=== PATIENT | male | born 1965 | race Caucasian/White ===

== ENCOUNTER → 2019-06-23 11:07 | Outpatient (CLI) | payer OTHER, SELFPAY ==
[2019-06-23 11:44] LABS: Add Manual Diff / Slide Review NO; Basophils Absolute Auto 100 /uL (0-100); Basophils Percent Auto 0.7 % (0-2); Eosinophils Absolute Auto 200 /uL (0-450); Eosinophils Percent Auto 2.7 % (2-4); Hematocrit 44.8 % (41-53); Hemoglobin 15.4 g/dL (13.5-17.5); Lymphocytes Absolute Auto 1300 /uL (1100-4500); Lymphocytes Percent Auto 14.3 % (25-40); Mean Corpuscular HGB Conc 34.4 % (30-36); Mean Corpuscular Hemoglobin 29.9 PG (26-34); Mean Corpuscular Volume 86.9 fL (80-100); Monocytes Absolute Auto 1000 /uL (0-900); Monocytes Percent Auto 11.6 % (3-14); Neutrophils Absolute Auto 6300 /uL (1500-7000); Neutrophils Percent Auto 70.7 % (50-75); Platelet Count 155 X10^3/uL (150-400); Red Blood Cell Count 5.15 X10^6/uL (4.5-5.9); Red Cell Distribution Width 13.3 % (11.6-14.8); White Blood Cell Count 8.9 X10^3/uL (4.5-11.0)
[2019-06-23 12:09] LABS: Erythrocyte Sedimentation Rate 4 MM/HR (0-15)
[2019-06-23 12:18] LABS: Uric Acid 5.9 mg/dL (3.5-8.5)
== END ==
PROVIDERS: Visit Provider Physician Assistant
DX: M10.9 Gout, unspecified (principal); M25.569 Pain in unspecified knee
CPT/HCPCS: 36415; 84550; 85025; 85651

== ENCOUNTER → 2021-03-04 12:50 | Outpatient (CLI) | payer OTHER, SELFPAY ==
--- NOTE | 2021-03-04 12:52 | DI.RAD.S_ITS ---
PROCEDURE: XR WRIST LT MIN 3V INDICATIONS: fall, L wrist injury TECHNIQUE: 4 views of the wrist were acquired. COMPARISON: None. FINDINGS: Bones: No fractures or dislocations. No suspicious bony lesions. Scaphoid view: No trauma found. Soft tissues: No suspicious soft tissue calcifications. IMPRESSION: Source of pain after trauma is not found. No fracture or traumatic subluxation is seen. Dictated by: Brayan Ochoa M.D. on 03/04/2021 at 13:10 Approved by: Brayan Ochoa M.D. on 03/04/2021 at 13:11
== END ==
PROVIDERS: PCP Physician Assistant Medical; Referring Provider Physician Assistant; Visit Provider Physician Assistant
DX: M25.532 Pain in left wrist (principal)
CPT/HCPCS: 73110

== ENCOUNTER 2023-01-07 09:26 | Emergency (ER) | payer OTHER, SELFPAY ==
[2023-01-07] VITALS (9 sets, daily range): BP systolic 118–175; BP diastolic 76–97; PULSE 68–79; RESP 13–22; TEMP 36.6; O2SAT 95–99; BMI 30.4
--- NOTE | 2023-01-07 09:31 | DI.RAD.S_ITS ---
PROCEDURE: XR CHEST 1V INDICATIONS: chest pain TECHNIQUE: One view of the chest was acquired. COMPARISON: None. FINDINGS: Surgical changes and devices: None. Lungs and pleura: Left basilar atelectasis. Lungs are clear. No pleural effusions or pneumothorax. Mediastinum: Mediastinal contours appear normal. Heart size is normal. Bones and chest wall: No suspicious bony lesions. Overlying soft tissues appear unremarkable. IMPRESSION: No acute cardiopulmonary abnormality. Dictated by: Ke Benson M.D. on 01/07/2023 at 10:04 Approved by: Ke Benson M.D. on 01/07/2023 at 10:04
--- NOTE | 2023-01-07 09:38 | ED_ITS ---
HPI - General Adult General Chief complaint: Chest Pain Stated complaint: chest pains and abd pain Time Seen by Provider: 01/07/23 09:29 Source: patient Mode of arrival: Ambulatory Limitations: no limitations History of Present Illness HPI narrative: Patient is a 57-year-old male. Does have a history of reflux disease. Is on omeprazole that he takes every day. On Sunday he started to have epigastric abdominal pain and also left arm pain. No shortness of breath. Went to an outside walk-in clinic. Had an EKG performed. Was told that it was unremarkable. Was discharged home. Followed up with the walk-in clinic at this hospital today for continued symptoms. He states it the left arm pain has resolved but he is still having the epigastric abdominal pain. He states it has been consistent since its onset on Sunday. He was sent to the emergency department for further evaluation. Related Data Home Medications Medication Instructions Recorded Confirmed omeprazole magnesium 20 mg 20 mg PO DAILY 11/02/21 01/07/23 tablet,delayed release (Prilosec OTC) aspirin 81 mg tablet 81 mg PO DAILY 01/07/23 01/07/23 Previous Rx's Medication Instructions Recorded sucralfate 100 mg/mL oral 10 ml PO QACHS #414 mL 01/07/23 suspension (Carafate) Allergies Allergy/AdvReac Type Severity Reaction Status Date / Time No Known Drug Allergies Allergy Verified 01/07/23 09:36 Review of Systems Review of Systems ROS Unobtainable: All systems reviewed & are unremarkable except as noted in HPI and below Patient History Medical History Gastroesophageal reflux disease Social History Smoking Status: Never smoker Smoking Status: Never smoker Exam Initial Vital Signs Initial Vital Signs: Vital Signs Temperature 97.8 F 01/07/23 09:30 Pulse Rate 78 01/07/23 09:30 Respiratory Rate 18 01/07/23 09:30 Blood Pressure 175/97 H 01/07/23 09:30 Pulse Oximetry 99 01/07/23 09:30 Oxygen Delivery Method Room Air 01/07/23 09:30 Const General: cooperative and comfortable HENMT Head: normocephalic Resp Effort & Inspection: normal respiratory effort Auscultation: clear to auscultation bilaterally Cardio Rate: regular rate Rhythm: regular rhythm GI Inspection: normal to inspection Palpation: soft, No firm, No guarding and tender (Epigastric pain) Skin General: no rashes or lesions noted Neuro General: patient alert, patient awake, patient oriented x3 and moves all e xtremities Extrem General: normal to inspection and capillary refill normal Scores HEART Score Heart Score history: Slightly Suspicious Heart Score EKG: Normal Heart Score Age: 45-64 years old Heart Score risk factors: No known risk factors Heart Score troponin: < or = to normal limit Heart Score Total: 1 Course Orders Ordered: ED Orders 01/07/23 09:30 Complete Blood Count AUTO DIFF Stat Comprehensive Metabolic Panel Stat Lipase Stat Troponin & CK Cardiac Panel Stat 01/07/23 09:31 XR chest 1V Stat EKG-12 Lead Stat Discontinued Medications Al Hydrox/Mg Hydrox/Simethicone 20 ml/ Lidocaine HCl 15 ml 0 ml PO NOW ONE Stop: 01/07/23 09:34 Last Admin: 01/07/23 09:50 Dose: 35 ml Pantoprazole Sodium (Pantoprazole 40 Mg Vial) 40 mg IV NOW ONE Stop: 01/07/23 09:34 Last Admin: 01/07/23 09:50 Dose: 40 mg Vital Signs Vital signs: Vital Signs - 8 hr 01/07/23 09:30 Temperature 97.8 F Pulse Rate 78 Respiratory Rate 18 Blood Pressure 175/97 H Pulse Oximetry 99 Oxygen Delivery Method Room Air Medical Decision Making Lab Data 01/07/23 09:41 01/07/23 09:41 Labs: Lab Results 01/07/23 01/07/23 Range/Units 09:41 09:41 WBC 10.0 (4.5-11.0) X10^3/uL RBC 5.31 (4.5-5.9) X10^6/uL Hgb 16.0 (13.5-17.5) g/dL Hct 46.6 (41-53) % MCV 87.7 (80-100) fL MCH 30.2 (26-34) PG MCHC 34.4 (30-36) % RDW 13.2 (11.6-14.8) % Plt Count 169 (150-400) X10^3/uL Neut % (Auto) 71.0 (50-75) % Lymph % (Auto) 15.6 L (25-40) % [place] % (Auto) 10.7 (3-14) % Eos % (Auto) 2.0 (2-4) % Baso % (Auto) 0.7 (0-2) % Neut # (Auto) 7100 H (4788-6857) /uL Lymph # (Auto) 1600 (0511-9755) /uL [place] # (Auto) 1100 H (0-900) /uL Eos # (Auto) 200 (0-450) /uL Baso # (Auto) 100 (0-100) /uL Sodium 137 (137-145) mmol/L Potassium 4.1 (3.4-5.1) mmol/L Chloride 100 (98-107) mmol/L Carbon Dioxide 30 (22-32) mmol/L BUN 14 (9-20) mg/dL Creatinine 1.03 (0.66-1.25) mg/dL Estimated GFR > 60 (>60) mL/min BUN/Creatinine Ratio 13.6 (6-22) Glucose 101 H (70-100) mg/dL Calcium 8.9 (8.4-10.2) mg/dL Total Bilirubin 1.2 (0.2-1.3) mg/dL AST 36 (17-59) IU/L ALT 45 (<50) IU/L Alkaline Phosphatase 78 (38-126) U/L Total Creatine Kinase 131 (55-170) U/L CK-MB (CK-2) 0.74 (<2.37) ng/mL CK-MB (CK-2) Rel Index 0.6 L (1.5-5.0) % Troponin I < 0.012 (0.01-0.034) ng/mL Total Protein 8.4 H (6.3-8.2) g/dL Albumin 4.4 (3.5-5.0) g/dL Globulin 4.0 (1.7-4.1) g/dL Albumin/Globulin Ratio 1.1 (1.0-2.8) Lipase 253 (23-300) U/L Imaging Data Chest x-ray: Radiologist's Impression: PROCEDURE:? XR CHEST 1V ? INDICATIONS:? chest pain ? TECHNIQUE:? One view of the chest was acquired.? ? COMPARISON:? None. ? FINDINGS:? ? Surgical changes and devices:? None.? ? Lungs and pleura:? Left basilar atelectasis.? Lungs are clear.? No pleural effusions or pneumothorax.? ? Mediastinum:? Mediastinal contours appear normal.? Heart size is normal.? ? Bones and chest wall:? No suspicious bony lesions.? Overlying soft tissues appear unremarkable.? ? IMPRESSION:? No acute cardiopulmonary abnormality. ECG Data Attestation: I personally reviewed and interpreted this ECG as follows: Interpretation: Sinus rhythm Ventricular rate is 70 Normal axis Normal QRS Normal QTC No ST T wave changes MDM Narrative Medical decision making narrative: Patient has been having consistent symptoms since Sunday. His EKG and chest x- ray in troponins are negative. He does have a low risk heart score. He states he feels better after the GI cocktail. He has a history of reflux disease and I suspect that that is what is causing his symptoms today. Will discharge patient home with a prescription for Carafate. He was given return precautions. He expressed understanding and agreement. Discharge Plan Departure Patient Disposition: Home Clinical Impression: Abdominal pain, epigastric Instructions: DI for Gastroesophageal Reflux Disease (GERD) Activity Restrictions/Additional Instructions: I do recommend that you continue to take the omeprazole as directed. I do feel that we should start you on a new medicine called Carafate. This was sent to the pharmacy of your choice. Please start taking it as directed. Contact your primary doctor for a follow-up. Return to the emergency department for new symptoms. Prescriptions: New sucralfate [Carafate] 100 mg/mL suspension 10 ml PO QACHS Qty: 414 2RF No Action Adult Low Dose Aspirin 81 mg Tablet 81 mg PO DAILY omeprazole magnesium [Prilosec OTC] 20 mg tablet,delayed release (DR/EC) 20 mg PO DAILY Referrals: Dalia Evans PA-C [Primary Care Provider] - Stand Alone Forms: Patient Portal/API
[2023-01-07 09:48] LABS: Add Manual Diff / Slide Review NO; Basophils Absolute Auto 100 /uL (0-100); Basophils Percent Auto 0.7 % (0-2); Eosinophils Absolute Auto 200 /uL (0-450); Hematocrit 46.6 % (41-53); Lymphocytes Absolute Auto 1600 /uL (1100-4500); Lymphocytes Percent Auto 15.6 % (25-40); Mean Corpuscular HGB Conc 34.4 % (30-36); Mean Corpuscular Hemoglobin 30.2 PG (26-34); Mean Corpuscular Volume 87.7 fL (80-100); Monocytes Absolute Auto 1100 /uL (0-900); Monocytes Percent Auto 10.7 % (3-14); Neutrophils Absolute Auto 7100 /uL (1500-7000); Platelet Count 169 X10^3/uL (150-400); Red Blood Cell Count 5.31 X10^6/uL (4.5-5.9); Red Cell Distribution Width 13.2 % (11.6-14.8)
[2023-01-07] MEDS: PANTOPRAZOLE 40 MG VIAL IV (09:50)
[2023-01-07] MEDS: MAG HYDROX/ALUMINUM/SIMETH SUS 20 ML, LIDOCAINE VISCOUS 2% 15 ML PO (09:50)
[2023-01-07 10:01] LABS: Alanine Aminotransferase 45 IU/L (<50); Albumin 4.4 g/dL (3.5-5.0); Albumin Globulin Ratio 1.1 (1.0-2.8); Alkaline Phosphatase 78 U/L (38-126); Aspartate Aminotransferase 36 IU/L (17-59); BUN Creatinine Ratio 13.6 (6-22); Bilirubin Total 1.2 mg/dL (0.2-1.3); Blood Urea Nitrogen 14 mg/dL (9-20); Calcium 8.9 mg/dL (8.4-10.2); Carbon Dioxide 30 mmol/L (22-32); Chloride 100 mmol/L (98-107); Creatine Kinase 131 U/L (55-170); Estimated Glomerular Filt Rate > 60 mL/min (>60); Glucose 101 mg/dL (70-100); HEMOLYSIS 20 (0-50); Lipase 253 U/L (23-300); Potassium 4.1 mmol/L (3.4-5.1); Sodium 137 mmol/L (137-145); Total Protein 8.4 g/dL (6.3-8.2)
[2023-01-07 10:12] LABS: Troponin I < 0.012 ng/mL (0.01-0.034)
[2023-01-07 10:17] LABS: CKMB % Relative Index 0.6 % (1.5-5.0); Creatine Kinase MB 0.74 ng/mL (<2.37)
== END 2023-01-07 10:54 | disposition home or self-care (01) ==
PROVIDERS: Emergency Provider Emergency Medicine; PCP Physician Assistant Medical
DX: R10.13 Epigastric pain (principal)
CPT/HCPCS: 36415; 71045; 80053; 82550; 82553; 83690; 84484; 85025; 93005; 93010; 96374; 99284; C9113